=== PATIENT | male | born 1945 | race Caucasian/White ===

== ENCOUNTER → 2017-03-30 | Day surgery (SDC) | payer MEDICARE, OTHER ==
[~2017-03-30] VITALS: Ht 190.5 cm; Wt 122.0 kg
[~2017-03-30] MED LIST: ALLEGRA180 MG PO; ASPIRIN LO-DOSE81 MG PO; COREG25 MG PO; CPAP INH; FLONASE 50 MCG/16 GM NOSE; LASIX20 MG PO; PRAVACHOL20 MG PO; PRINIVIL (ZESTR20 MG PO; PROSCAR5 MG PO; SINGULAIR10 MG PO; SPIRIVA HANDIHA1 KIT INH; XARELTO20 MG PO
--- NOTE | ~2017-03-30 | OR ---
PATIENT'S NAME: LUCIANO PUGA [facility] AGE: 71 [address] ROOM: [place] [address] LOCATION: [facility] [place] DATE: 03/30/2017 OR/Procedure Report DISCHARGE DATE: FAMILY PHYSICIAN: Jack Reeves MD ATTENDING PHYSICIAN: POLI GRULLON SURGEON: Poli Grullon MD PUBLIC SAFETY DISPATCHER: DATE OF PROCEDURE: 03/30/2017 PREOPERATIVE DIAGNOSIS: Severe varicose veins of the left lower extremity. POSTOPERATIVE DIAGNOSIS: Severe varicose veins of the left lower extremity. PROCEDURE: 20 stab phlebectomies. PAWN SHOP KEEPER: Zoya Mock, nurse practitioner. ANESTHESIA: General. ESTIMATED BLOOD LOSS: 100 mL. OPERATIVE FINDINGS: Removal of large varicose vein segments from the left lower extremity. DESCRIPTION OF PROCEDURE: The patient was brought to operating room, placed supine on the operating room table, prepped and draped in a sterile manner. Preoperative time-out was performed. The patient received preoperative antibiotics. We then performed a series of 20 stab phlebectomies using an 11 blade to puncture the skin lateral to the large vein segments. We then used a lakisha hook along with mosquito clamps to remove the large vein segments. We used direct manual pressure to achieve hemostasis. Once we removed the multiple segments of vein, we then used skin glue in order to reapproximate the stab lesions. The leg was then wrapped with Kerlix and an Juvencio. The patient tolerated the procedure well and transferred to the recovery room and home later that day. POLI GRULLON MD FKM/modl /[id number] d: 03/30/172006 t: 04/06/171719, OPERATIVE SUMMARY
[2017-03-30 08:24] LABS: BASOPHIL # 0.1 K/uL (0.0-0.2); BASOPHIL % 1.1 %; EOSINOPHIL # 0.1 K/uL (0.0-0.5); EOSINOPHIL % 1.7 %; HEMATOCRIT 47.5 % (37.0-53.0); HEMOGLOBIN 16.2 g/dL (11.0-16.0); IMMATURE GRANULOCYTE % 0.7 %; LYMPHOCYTE # 1.4 K/uL (0.8-4.0); LYMPHOCYTE % 26.2 %; MCH 31.4 pg (27.0-34.0); MCHC 34.1 gm/dL (32.0-36.5); MCV 92.1 fl (83.0-98.0); MONOCYTE # 0.6 K/uL (0.0-1.0); MPV 10.5 fl (9.4-12.4); NEUTROPHIL # (ANC) 3.2 K/uL (1.4-9.0); NEUTROPHIL % 59.3 %; NRBC % 0 /100WBC (0-0.00); PLATELET COUNT 129 K/uL (150-450); RBC 5.16 M/uL (3.50-5.50); RDW-CV 13.9 % (11.9-14.6); WBC 5.4 K/uL (4.0-11.0)
[2017-03-30 08:39] LABS: ALBUMIN 3.9 gm/dL (3.5-5.0); ANION GAP 8.4 (10.0-19.0); CALCIUM 8.7 mg/dL (8.5-10.5); CREATININE 1.3 mg/dL (0.6-1.3); POTASSIUM 4.4 mMol/L (3.7-5.1); TOTAL BILIRUBIN 1.7 mg/dL (0.0-1.5); TOTAL PROTEIN 7.2 g/dL (6.0-8.4)
== END ==
LOC: GPOC 03-24 09:00 → GSDC 07:44
PROVIDERS: Surgery Vascular Surgery
PROC: 06BY3ZZ Excision of Lower Vein, Percutaneous Approach (ICD-10-PCS; principal; 2017-03-30)
DX: I83.12 Varicose veins of left lower extremity with inflammation (principal); G47.33 Obstructive sleep apnea (adult) (pediatric); I11.0 Hypertensive heart disease with heart failure; I50.9 Heart failure, unspecified; I25.5 Ischemic cardiomyopathy; I48.91 Unspecified atrial fibrillation; E78.5 Hyperlipidemia, unspecified; I25.10 Atherosclerotic heart disease of native coronary artery without angina pectoris; Z98.49 Cataract extraction status, unspecified eye; Z98.890 Other specified postprocedural states; Z87.891 Personal history of nicotine dependence
CPT/HCPCS: J0690; J1100; J2001; J2405; J7120